=== PATIENT | male | born 1995 ===

== ENCOUNTER 2017-12-08 22:49 | Emergency (ER) | payer OTHER, MEDICAID ==
[2017-12-08 23:06] VITALS: BP 135/76; PULSE 64; RESP 18; TEMP 98.4; O2SAT 99
--- NOTE | 2017-12-08 23:27 | ED PDOC ---
HPI: General Adult Time Seen by Provider: 12/08/17 23:11 Chief Complaint (Nursing): GI Problem History Per: Patient Additional Complaint(s): Pt. states at 0800 this morning he developed "hiccups." Hiccups continued throughout the entire day and in the evening began to develop mid-sternal chest pain present only with hiccuping. Pt. states while waiting in ED hiccuping resolved. Currently without any symptoms. Denies chest pain, cough, SOB, palpitations, abdominal pain, N/V. Past Medical History Reviewed: Historical Data, Nursing Documentation, Vital Signs Vital Signs: Last Vital Signs Temp 98.4 F 12/08/17 23:03 Pulse 64 12/08/17 23:03 Resp 18 12/08/17 23:03 BP 135/76 12/08/17 23:03 Pulse Ox 99 12/08/17 23:03 - Family History Family History: States: No Known Family Hx - Home Medications Home Medications: Ambulatory Orders Medication Instructions Recorded Metoclopramide [Reglan] 10 mg PO TID PRN #10 tab 12/08/17 - Allergies Allergies/Adverse Reactions: Allergies Allergy/AdvReac Type Severity Reaction Status Date / Time No Known Allergies Allergy Verified 12/08/17 23:03 Review of Systems ROS Statement: Except As Marked, All Systems Reviewed And Found Negative Cardiovascular: Positive for: Chest Pain Physical Exam - Physical Exam Appears: Positive for: Well, Non-toxic, No Acute Distress Skin: Positive for: Normal Color, Warm. Negative for: Rash Eye Exam: Positive for: Normal appearance Cardiovascular/Chest: Positive for: Regular Rate, Rhythm, Chest Non Tender Respiratory: Positive for: Normal Breath Sounds. Negative for: Respiratory Distress Gastrointestinal/Abdominal: Positive for: Normal Exam, Soft. Negative for: Tenderness Neurologic/Psych: Positive for: Alert, Oriented, Other (no hiccuping noted while in ED. ) - ECG O2 Sat by Pulse Oximetry: 99 Disposition - Clinical Impression Clinical Impression: Hiccups - Patient ED Disposition Is Patient to be Admitted: No - Disposition Referrals: [facility] [Outside] [facility] [Outside] Disposition: Routine/Home Disposition Time: 23:28 Condition: STABLE Prescriptions: Metoclopramide [Reglan] 10 mg PO TID PRN #10 tab PRN Reason: nausea or hiccups Instructions: Hiccups Forms: [facility] (Barbadian) Print Language: BAHAMIAN
== END 2017-12-09 00:17 | disposition home or self-care (01) ==
LOC: H.ER 22:49
DX: R06.6 Hiccough (principal); R07.89 Other chest pain

== ENCOUNTER 2018-04-26 22:59 | Emergency (ER) | payer OTHER, MEDICAID ==
[2018-04-26 23:05] VITALS: BP 146/79; PULSE 75; RESP 16; TEMP 98.1; O2SAT 100
--- NOTE | 2018-04-26 23:20 | ED PDOC ---
HPI: Skin/Bite Injury Time Seen by Provider: 04/26/18 23:07 Chief Complaint (Nursing): Abnormal Skin Integrity History Per: Patient Additional Complaint(s): Pt. states 2 weeks ago he was carrying a dog whom he found out was being treated for scabies and for the past week he's had a pruritic rash on his R forearm. States this occurred while he was in the [place]. Also states he did stay at a hotel during his visit. Further reports he attempted to use OTC meds without relief. Of note, other people who he has been in contact with do not have same rash. Denies fever, sick contacts, pain, antipyretic use. Past Medical History Reviewed: Historical Data, Nursing Documentation, Vital Signs Vital Signs: Last Vital Signs Temp 98.1 F 04/26/18 23:03 Pulse 75 04/26/18 23:03 Resp 16 04/26/18 23:03 BP 146/79 04/26/18 23:03 Pulse Ox 100 04/26/18 23:03 - Family History Family History: States: No Known Family Hx - Home Medications Home Medications: Ambulatory Orders Medication Instructions Recorded Metoclopramide [Reglan] 10 mg PO TID PRN #10 tab 12/08/17 Permethrin 5% [Permethrin] 1 appl TP ONCE #1 tube 04/26/18 - Allergies Allergies/Adverse Reactions: Allergies Allergy/AdvReac Type Severity Reaction Status Date / Time No Known Allergies Allergy Verified 12/08/17 23:03 Review of Systems ROS Statement: Except As Marked, All Systems Reviewed And Found Negative Skin: Positive for: Rash Physical Exam - Physical Exam Appears: Positive for: Well, Non-toxic, No Acute Distress Skin: Positive for: Normal Color, Warm, Rash (R ventral forearm with two linear burrows without surrounding erythema, vesicles, or pustules) Pulses-Radial (L): 2+ Pulses-Radial (R): 2+ Neurologic/Psych: Positive for: Alert, Oriented (x3) - ECG O2 Sat by Pulse Oximetry: 100 - Progress ED Course And Treament: Pt. given strict instructions on use of permethrin on entire body and not just location of rash. Also informed of contact precautions. Pt. verbalized understanding of necessary f/u. Disposition - Clinical Impression Clinical Impression: Scabies - Patient ED Disposition Is Patient to be Admitted: No - Disposition Referrals: [facility] [Outside] Disposition: Routine/Home Disposition Time: 23:17 Condition: STABLE Additional Instructions: MITCHELL OSORIO, thank you for letting us take care of you today. Your provider was Declan Newman MD and you were treated for SKIN RASH. The emergency medical care you received today was directed at your acute symptoms. If you were prescribed any medication, please fill it and take as directed. It may take several days for your symptoms to resolve. Return to the Emergency Department if your symptoms worsen, do not improve, or if you have any other problems. Please contact your doctor or call one of the physicians/clinics you have been referred to that are listed on the Patient Visit Information form that is included in your discharge packet. Bring any paperwork you were given at discharge with you along with any medications you are taking to your follow up visit. Our treatment cannot replace ongoing medical care by a primary care provider outside of the emergency department. Thank you for allowing the [facility] team to be part of your care today. If you had an X-Ray or CT scan: A Radiologist will review the ED reading if any change in treatment is needed we will contact you. If you had a blood, urine, or wound culture: It will take several days for the results, if any change in treatment is needed we will contact you. If you had an STI test: It will take 48 hours for the results. Please call after 1 week if you have not heard back. Prescriptions: Permethrin 5% [Permethrin] 1 appl TP ONCE #1 tube Instructions: Scabies (DC)
== END 2018-04-26 23:28 | disposition home or self-care (01) ==
LOC: H.ER 22:59
DX: B86 Scabies (principal)